=== PATIENT | male | born 1945 | race Caucasian/White ===

== ENCOUNTER → 2016-10-29 | Outpatient (CLI) | payer OTHER ==
[~2016-10-29] MED LIST: CMDUNK PO; LISI-461 PO; MULT-506 PO; OXYSRUNK PO; PRCUNK PO
[2016-10-29 14:41] LABS: BASO % 0.5 %; BASO ABS # 0.03 K/uL (0-0.2); COMPLETE YES; EOS % 2.6 %; HEMATOCRIT 47.6 % (42-52); IG% 0.3 %; LYMPH % 28.6 %; LYMPH ABS # 1.89 K/uL (1.2-3.4); MEAN CELL VOLUME 88.5 fL (80-100); MEAN CORPUSCULAR HEMOGLOBIN 29.7 pg (25-34); MEAN CORPUSCULAR HGB CONC 33.6 g/dl (32-36); MEAN PLATELET VOLUME 10.6 fL (7.4-10.4); MONO % 14.1 %; NEUT % 53.9 %; PLATELET COUNT 241 K/uL (130-400); RED BLOOD COUNT 5.38 M/uL (4.7-6.1)
[2016-10-29 15:03] LABS: ALB/GLOB RATIO 1.1 (0.9-2); ALKALINE PHOSPHATASE 102 U/L (45-117); ALT/SGPT 33 U/L (12-78); AST/SGOT 31 U/L (15-37); BLOOD UREA NITROGEN 18 mg/dl (7-18); BUN/CREATININE RATIO 17.6 (10-20); CALCIUM 9.1 mg/dl (8.5-10.1); CARBON DIOXIDE 27 mmol/L (21-32); CHLORIDE 108 mmol/L (98-107); CHOLESTEROL 156 mg/dl (0-200); CHOLESTEROL/HDL RATIO 4.3; GLUCOSE 94 mg/dl (70-99); HDL CHOLESTEROL 36 mg/dl; LDL CHOLESTEROL CALCULATED 88 mg/dl; POTASSIUM 4.4 mmol/L (3.5-5.1); SODIUM 140 mmol/L (136-145); TRIGLYCERIDES 159 mg/dl (0-150); VERY LOW DENSITY LIPOPROT CALC 32 mg/dl
== END | disposition home or self-care (01) ==
LOC: C.LABSPEC 13:09
PROVIDERS: ATTEND Family Medicine
DX: I10 Essential (primary) hypertension (principal); E78.2 Mixed hyperlipidemia

== ENCOUNTER → 2016-11-28 | Outpatient (CLI) | payer OTHER ==
[2016-11-28 14:57] LABS: THYROID STIMULATING HORMONE 4.15 uIu/ml (0.300-4.500)
== END | disposition home or self-care (01) ==
LOC: C.LABSPEC 13:18
PROVIDERS: ATTEND Family Medicine
DX: R63.5 Abnormal weight gain (principal)

== ENCOUNTER → 2016-12-29 | Outpatient (CLI) | payer OTHER ==
[2016-12-29 14:11] LABS: THYROID STIMULATING HORMONE 4.56 uIu/ml (0.300-4.500)
== END | disposition home or self-care (01) ==
LOC: C.LABSPEC 13:05
PROVIDERS: ATTEND Family Medicine
DX: R63.5 Abnormal weight gain (principal)